=== PATIENT | female | born 1940 | race Caucasian/White ===

== ENCOUNTER 2018-09-22 06:00 | Day surgery (SDC) | payer BC ==
[2018-09-22] MEDS ORDERED: POLYMYXIN/BACITRACIN 1L IRRIG (07:12)
[2018-09-22] MEDS: LACTATED RINGER'S 1,000 ML IV (07:28)
[2018-09-22] MEDS ORDERED: HYDROmorphONE 1 MG/5 ML IV SYRINGE IV ×3 (07:30)
[2018-09-22] MEDS ORDERED: DESFLURANE 15 MIN (07:30)
[2018-09-22] MEDS ORDERED: LIDOCAINE 2% (SDV) 5 ML INJ (07:30)
[2018-09-22] MEDS ORDERED: FENTAnyl 50 MCG/ML VIAL (07:32)
[2018-09-22] MEDS ORDERED: MIDAZOLAM 1 MG/ML 2 ML INJ (07:32)
[2018-09-22] MEDS ORDERED: PROPOFOL 20 ML (07:32)
[2018-09-22] MEDS ORDERED: ETOMIDATE 20 MG INJ (07:32)
[2018-09-22] MEDS ORDERED: BUPIVACAINE 0.25% (MPF) 30 ML INJ (07:33)
[2018-09-22] MEDS ORDERED: DEXAMETHASONE 4 MG/ML 1 ML INJ (07:33)
[2018-09-22] MEDS ORDERED: ROPIVACAINE 0.5 % 30 ML VIAL (07:34)
[2018-09-22] MEDS ORDERED: DEXAMETHASONE 4 MG/ML 5 ML INJ (07:47)
[2018-09-22] MEDS ORDERED: CEFAZOLIN 1 GM INJ (07:55)
[2018-09-22] MEDS ORDERED: ONDANSETRON 4 MG INJ (07:57)
[2018-09-22] MEDS: LIDOCAINE 1%/EPI 30 ML INJ (08:19)
== END 2018-09-22 10:55 | disposition home or self-care (01) ==
LOC: SDS 06:00
DX: M21.611 Bunion of right foot (principal)
CPT/HCPCS: 28298; 73620; 73630